=== PATIENT | female | born 1960 | race Caucasian/White ===

== ENCOUNTER 2020-03-22 06:43 | Inpatient (IN) | payer BC ==
[2020-03-17 10:50] LABS: AMORPHOUS SEDIMENT,URINE TRACE /HPF; APPEARANCE,URINE SLIGHTLY-CLOUDY; BILIRUBIN,URINE NEGATIVE (NEGATIVE); COLOR,URINE YELLOW; GLUCOSE, URINE NEGATIVE (NEGATIVE); KETONES,URINE NEGATIVE (NEGATIVE); LEUKOCYTE ESTERASE,URINE NEGATIVE (NEGATIVE); NITRITE,URINE NEGATIVE (NEGATIVE); PROTEIN,URINE NEGATIVE (NEGATIVE); URINE SPECIFIC GRAVITY 1.018; UROBILINOGEN,URINE NEGATIVE mg/dL (<2.0)
[~2020-03-22 06:43] MED LIST: BUPIVACAINE INJ/PF LIPOSOME/PF 266 MG/20 ML SDV INJ PRN; CEFAZOLIN INJ 1 GM VIAL IV PRN; IBUPROFEN 800 MG in NORMAL SALINE 250 ML IV PRN; LIDOCAINE 0.5% INJ-PF (5 MG/ML) 50 ML SDV SUBCUT PRN; OXYCODONE HCL SR 10 MG TABLET PO PRN; PANTOPRAZOLE SODIUM 20 MG TABLET.DR PO PRN; RINGERS SOLUTION,LACTATED 1,000 ML IV PRN; VANCOMYCIN HCL 1,000 MG in DEXTROSE 5%-WATER 250 ML IV PRN
[2020-03-22] MEDS ORDERED: BUPIVACAINE HCL 0.25% /EPINEPHRINE INJ/PF 30 ML SDV ONE (07:59)
[2020-03-22] MEDS ORDERED: OXYCODONE HCL SR 10 MG TABLET PO ONE (08:02)
[2020-03-22] MEDS ORDERED: PANTOPRAZOLE SODIUM 20 MG TABLET.DR PO ONE (08:03)
[2020-03-22] MEDS ORDERED: CEFAZOLIN 1 GM/D5W RTU 1 GM/50 ML RTUPB IV ONE (08:03)
[2020-03-22] MEDS ORDERED: ONDANSETRON HCL INJ/PF 4 MG/2 ML SDV ONE (08:57)
[2020-03-22] MEDS ORDERED: MIDAZOLAM 2 MG/2 ML INJ ONE (08:57)
[2020-03-22] MEDS ORDERED: MORPHINE SULFATE 10 MG/ML INJ ONE (08:57)
[2020-03-22] MEDS ORDERED: FENTANYL CITRATE INJ/PF 100 MCG/2 ML AMPUL ONE (08:57)
[2020-03-22] MEDS ORDERED: DEXAMETHASONE SOD PHOSPHATE INJ 4 MG/1 ML VIAL ONE (08:57)
[2020-03-22] MEDS ORDERED: TRANEXAMIC ACID INJ/PF 1,000 MG/10 ML SDV ONE ×2 (08:57→11:15)
[2020-03-22] MEDS ORDERED: PROPOFOL INJ 200 MG/20 ML VIAL IV ONE (08:58)
[2020-03-22] MEDS ORDERED: BUPIVACAINE HCL 0.25 % INJ/PF (2.5 MG/1 ML) 30 ML VIAL ONE (09:51)
[2020-03-22] MEDS ORDERED: PROMETHAZINE HCL INJ 25 MG/1 ML VIAL IV PRN ×2 (10:04)
[2020-03-22] MEDS ORDERED: MORPHINE SULFATE 10 MG/ML INJ IV PRN (10:04)
[2020-03-22] MEDS ORDERED: FENTANYL CITRATE INJ/PF 100 MCG/2 ML AMPUL IV PRN ×3 (10:04)
[2020-03-22] MEDS ORDERED: DIPHENHYDRAMINE HCL 50 MG/ML VIAL IV PRN ×2 (10:04→10:30)
[2020-03-22] MEDS ORDERED: MEPERIDINE HCL/PF INJ 25 MG/1 ML DISP.SYRIN IV PRN (10:04)
[2020-03-22] MEDS ORDERED: MAG HYDROX/AL HYDROX/SIMETH SUSP 30 ML UDCUP PO PRN ×2 (10:30→11:00)
[2020-03-22] MEDS ORDERED: ONDANSETRON 4 MG TAB.RAPDIS PO PRN (10:30)
[2020-03-22] MEDS ORDERED: TRANEXAMIC ACID INJ/PF 1,000 MG/10 ML SDV IV ONE (10:30)
[2020-03-22] MEDS ORDERED: ACETAMINOPHEN 325 MG TABLET PO PRN (10:30)
[2020-03-22] MEDS ORDERED: RINGERS SOLUTION,LACTATED 1,000 ML IV PRN (10:30)
[2020-03-22] MEDS ORDERED: ZOLPIDEM TARTRATE 5 MG TABLET PO PRN ×2 (10:30→11:00)
--- NOTE | 2020-03-22 10:30 | Operative Report ---
Operative Report DATE OF SURGERY: 03/22/20 PREOPERATIVE DIAGNOSIS: Right knee arthritis OPERATION: Right knee arthroplasty SURGEON: ZAKIA CASAREZ ANESTHESIA: Spinal TISSUE REMOVED OR ALTERED: Bone to pathology ESTIMATED BLOOD LOSS: 75 PROCEDURE: Implants used: Femur: Gisselle triathlon size 6 CR uncemented femur Tibia: 5 uncemented tibia Tibial liner: 9 mm CS insert Patella: 35 mm oval uncemented patella Procedure with the patient supine on the operating table the right the limb is prepped and draped in a sterile fashion. The limb was elevated for exsanguination and the tourniquet inflated to 280 torr. A standard midline median parapatellar approach the knee is taken. Access is gained to the femoral canal through the intercondylar notch. Intramedullary alignment instrumentation used to resect 10 mm of distal femur in 5 of valgus. Sizing guide indicated a size 6 femur. Appropriate cutting jig is then used to fashion anterior posterior and chamfer cuts. A trial reduction femurs performed and this is judged to be adequate. Attention was next turned to the tibia. Using an extra medullary alignment system 9 millimeters was resected off the lateral tibial plateau. This is sized to a size 5 tibia. A trial reduction was now performed with a 6 femur and a 5 tibia using a 9 millimeters spacer. It is full extension and central patellofemoral tracking. The articular surface the patella was next resected using an oscillating saw. All trial implants were removed. Both implants are impacted into position. The tourniquet was deflated hemostasis obtained the wound is then closed in layers using interrupted Vicryl followed by sarika. A sterile compressive dressing was applied and the patient returned to recovery room in satisfactory condition.
[2020-03-22] MEDS ORDERED: ONDANSETRON 4 MG TAB.RAPDIS ONE (11:51)
--- NOTE | 2020-03-22 12:09 | RADIOLOGY REPORT (SQ) ---
EXAM DESCRIPTION: KNEE RIGHT 2 VIEWS IMAGES COMPLETED DATE/TIME: 03/22/2020 11:37 am REASON FOR STUDY: Post OP -Long Cassette in PACU M17.11 UNILATERAL PRIMARY OSTEOARTHRITIS, RIGHT KN EE COMPARISON: None. NUMBER OF VIEWS: Two view(s). TECHNIQUE: Digital radiographic images of the right knee post-procedure. LIMITATIONS: None. FINDINGS: BONES: No worrisome or unexpected findings post-procedure. DEVICE: Total knee arthroplasty SOFT TISSUES: No worrisome findings. Expected postoperative soft tissue changes. IMPRESSION: SATISFACTORY POSTOPERATIVE RIGHT KNEE. TECHNICAL DOCUMENTATION: JOB ID: [id number] 2010 [employer]- All Rights Reserved Reading location - IP/workstation name: [email or web address]
[2020-03-22] MEDS: OXYCODONE HCL IR 5 MG TABLET PO PRN (17:55)
[2020-03-22] MEDS: IBUPROFEN 800 MG in NORMAL SALINE 250 ML IV SCH (17:55)
[2020-03-22] MEDS: SENNOSIDES/DOCUSATE 8.6-50 MG 1 EACH TABLET PO SCH (17:56)
[2020-03-22] MEDS ORDERED: ASPIRIN 81 MG TABLET, ENT COATED PO SCH (18:00)
[2020-03-22] MEDS: OXYCODONE HCL SR 10 MG TABLET PO SCH (22:05)
[2020-03-22] MEDS ORDERED: VANCOMYCIN HCL 1,000 MG in DEXTROSE 5%-WATER 250 ML IV ONE (22:30)
[2020-03-23] MEDS: IBUPROFEN 800 MG in NORMAL SALINE 250 ML IV SCH ×2 (01:15→09:16)
[2020-03-23 05:31] LABS: HEMATOCRIT 33.4 % (36.0-47.0); HEMOGLOBIN 10.9 g/dL (12.0-15.5); MEAN CORPUSCULAR HEMOGLOBIN 28.3 pg (27.0-33.4); MEAN CORPUSCULAR HGB CONC 32.7 g/dL (32.0-36.0); MEAN CORPUSCULAR VOLUME 87 fl (80-97); PLATELET COUNT 249 10^3/uL (150-450); RED BLOOD COUNT 3.85 10^6/uL (3.72-5.28); RED CELL DISTRIBUTION WIDTH 13.4 % (11.5-14.0); WHITE BLOOD COUNT 12.8 10^3/uL (4.0-10.5)
[2020-03-23 05:54] LABS: ANION GAP 5 (5-19); BLOOD UREA NITROGEN 19 mg/dL (7-20); CALCIUM 8.8 mg/dL (8.4-10.2); CARBON DIOXIDE 28 mmol/L (22-30); CHLORIDE 102 mmol/L (98-107); GLUCOSE 115 mg/dL (75-110); POTASSIUM 4.3 mmol/L (3.6-5.0)
[2020-03-23] MEDS ORDERED: PANTOPRAZOLE SODIUM 40 MG TABLET.DR PO SCH (06:00)
--- NOTE | 2020-03-23 07:05 | PDOC DISCHARGE SUMMARY ---
Impression - Admit/DC Date/PCP Admission Date/Primary Care Provider: 03/22/20 06:43 VANITA GARCIA NP Discharge Date: 03/23/20 - Discharge Diagnosis (1) Arthritis of right knee Is this a current diagnosis for this admission?: Yes - Additional Information Resuscitation Status: Full Code Discharge Diet: Regular Discharge Activity: Balance Activity w/Rest, No tub bath Referrals: ZAKIA CASAREZ MD [ACTIVE STAFF] - 04/01/20 8:15 am Home Medications: Acetaminophen [Tylenol Arthritis] 650 mg PO PRN PRN 03/17/20 Aspirin/Acetaminophen/Caffeine [Excedrin Extra Strength Caplet] 1 each PO Q8HP PRN 03/22/20 History of Present Illiness History of Present Illness: ALIDA ELLINGTON is a 59 year old female 59-year-old white female with progressive right knee pain and functional disability second osteoarthritis. Patient admitted for elective right knee arthroplasty. Hospital Course Hospital Course: Patient is admitted through the operating where she underwent undergoes uncomplicated right knee arthroplasty. She is returned to the floor in satisfactory condition. She makes excellent progress with physical therapy ambulating and weightbearing as tolerated basis. Compressive dressing is removed on the first postoperative morning by myself. Underlying OpSite dressing is clean dry and intact. Physical Exam Vital Signs: Temp Pulse Resp BP Pulse Ox 36.6 C 75 17 133/71 H 95 03/23/20 04:21 03/23/20 04:21 03/23/20 04:21 03/23/20 04:21 03/23/20 04:21 Intake & Output 03/22/20 03/23/20 03/24/20 06:59 06:59 06:59 Intake Total 4340 Output Total 30 Balance 4310 Weight 101 kg General appearance: PRESENT: no acute distress Head exam: PRESENT: normocephalic Respiratory exam: PRESENT: unlabored Cardiovascular exam: PRESENT: RRR GI/Abdominal exam: PRESENT: soft Rectal exam: PRESENT: deferred Musculoskeletal exam: PRESENT: other - Right knee OpSite dressing remains clean dry and intact. Minimal pedal edema. Distal neurovascular examination is intact. Results Laboratory Results: WBC 12.8 10^3/uL (4.0-10.5) H 03/23/20 05:19 RBC 3.85 10^6/uL (3.72-5.28) 03/23/20 05:19 Hgb 10.9 g/dL (12.0-15.5) L 03/23/20 05:19 Hct 33.4 % (36.0-47.0) L 03/23/20 05:19 MCV 87 fl (80-97) 03/23/20 05:19 MCH 28.3 pg (27.0-33.4) 03/23/20 05:19 MCHC 32.7 g/dL (32.0-36.0) 03/23/20 05:19 RDW 13.4 % (11.5-14.0) 03/23/20 05:19 Plt Count 249 10^3/uL (150-450) 03/23/20 05:19 Sodium 135.1 mmol/L (137-145) L 03/23/20 05:19 Potassium 4.3 mmol/L (3.6-5.0) 03/23/20 05:19 Chloride 102 mmol/L (98-107) 03/23/20 05:19 Carbon Dioxide 28 mmol/L (22-30) 03/23/20 05:19 Anion Gap 5 (5-19) 03/23/20 05:19 BUN 19 mg/dL (7-20) 03/23/20 05:19 Creatinine 0.72 mg/dL (0.52-1.25) 03/23/20 05:19 Est GFR ( Amer) > 60 (>60) 03/23/20 05:19 Est GFR (MDRD) Non-Af > 60 (>60) 03/23/20 05:19 Glucose 115 mg/dL (75-110) H 03/23/20 05:19 Calcium 8.8 mg/dL (8.4-10.2) 03/23/20 05:19 Urine Color YELLOW 03/17/20 10:00 Urine Appearance SLIGHTLY-CLOUDY 03/17/20 10:00 Urine pH 7.0 (5.0-9.0) 03/17/20 10:00 Ur Specific [place] 1.018 03/17/20 10:00 Urine Protein NEGATIVE mg/dL (NEGATIVE) 03/17/20 10:00 Urine Glucose (UA) NEGATIVE mg/dL (NEGATIVE) 03/17/20 10:00 Urine Ketones NEGATIVE mg/dL (NEGATIVE) 03/17/20 10:00 Urine Blood NEGATIVE (NEGATIVE) 03/17/20 10:00 Urine Nitrite NEGATIVE (NEGATIVE) 03/17/20 10:00 Urine Bilirubin NEGATIVE (NEGATIVE) 03/17/20 10:00 Urine Urobilinogen NEGATIVE mg/dL (<2.0) 03/17/20 10:00 Ur Leukocyte Esterase NEGATIVE (NEGATIVE) 03/17/20 10:00 Urine WBC (Auto) 3 /HPF 03/17/20 10:00 Urine RBC (Auto) 1 /HPF 03/17/20 10:00 Squamous Epi Cells Auto <1 /HPF 03/17/20 10:00 Amorphous Sediment Auto TRACE /HPF 03/17/20 10:00 Urine Mucus (Auto) OCC /LPF 03/17/20 10:00 Urine Ascorbic Acid NEGATIVE (NEGATIVE) 03/17/20 10:00 COVID-19 Source NASOPHARYNGEAL 03/17/20 10:05 COVID-19 (MATTHEW) NOT DETECTED 03/17/20 10:05 Impressions: Knee X-Ray 03/22/20 10:32 IMPRESSION: SATISFACTORY POSTOPERATIVE RIGHT KNEE. Plan Plan of Treatment: Discharge home with home health services and DME on a weightbearing as tolerated basis. Follow-up with Dr. Casarez and [facility] for surgery in 2 weeks for staple removal. Stroke Is this a Stroke Patient?: No Stroke Pt being discharged on Anti-thrombolytic therapy?: Yes Acute Heart Failure - Is this a Heart Failure Patient?: No
[2020-03-23] MEDS: OXYCODONE HCL IR 5 MG TABLET PO PRN (09:21)
[2020-03-23] MEDS: OXYCODONE HCL SR 10 MG TABLET PO SCH (09:21)
[2020-03-23] MEDS: SENNOSIDES/DOCUSATE 8.6-50 MG 1 EACH TABLET PO SCH (09:21)
[2020-03-23 09:27] VITALS: BP 112/58
[2020-03-23] MEDS ORDERED: PRENATAL VITAMIN W DHA CAPSULE PO SCH (10:00)
[2020-03-24] MEDS ORDERED: BUPIVACAINE INJ/PF LIPOSOME/PF 266 MG/20 ML SDV INJ PRN (05:00)
[2020-03-24] MEDS ORDERED: OXYCODONE HCL SR 10 MG TABLET PO PRN (05:00)
[2020-03-24] MEDS ORDERED: PANTOPRAZOLE SODIUM 20 MG TABLET.DR PO PRN (05:00)
== END 2020-03-23 11:49 | disposition home health service (06) | DRG 470 ==
LOC: INOR 06:43 → 4S 13:42
PROVIDERS: ADMIT Orthopaedic Surgery; ATTEND Orthopaedic Surgery
PROC: 0SRC0JA Replacement of Right Knee Joint with Synthetic Substitute, Uncemented, Open Approach (ICD-10-PCS; principal; 2020-03-22 09:00)
DX: M17.11 Unilateral primary osteoarthritis, right knee (principal); M25.561 Pain in right knee; Z03.818 Encounter for observation for suspected exposure to other biological agents ruled out
CPT/HCPCS: 01402; 36415; 64447; 76942; 80048; 81001; 85027; 87635; 88305; 88311; 94799; C1776; C9803; J0690; J1100; J1741; J2250; J2270; J2405; J2704; J3010; J3370; J3490; J7050; J7060; S0119